=== PATIENT | female | born 1990 | race Caucasian/White ===

== ENCOUNTER 2023-06-03 09:36 | Emergency (ER) | payer SELFPAY ==
[2023-06-03 09:57] VITALS: BP 125/79; PULSE 82; RESP 16; TEMP 37.2; O2SAT 100
--- NOTE | 2023-06-03 10:16 | W.ED.GENAD ---
HPI General Mode of arrival: ambulatory. Date/Time Provider Initiated Documentation: 06/03/23 10:08. Limitations to Documentation: no limitations. Information obtained by: patient, RN notes reviewed and old records reviewed. HPI Narrative: 32-year-old female presents to the ER with a chief complaint of left thigh pain, some midsternal chest pain and left lower quadrant abdominal pain after a slip and fall down some stairs. She fell forward with her leg in between the stairs after slipping on some ice. She did hit the left side of her head, no loss of consciousness no neck pain. She did take 800 mg ibuprofen prior to arrival. She was approximately 6 steps. She is allergic to penicillin. Is not on any blood thinners. Surgical history includes tubal ligation. Denies any chance of .. She is alert and oriented x 4, no focal neurodeficits noted. Related Data Home Medications Medication Instructions Recorded Confirmed ibuprofen 200 mg tablet (Advil) 200 mg PO TID-QID PRN 06/03/23 06/03/23 Allergies Allergy/AdvReac Type Severity Reaction Status Date / Time Penicillins Allergy Severe Anaphylaxis Unverified 06/03/23 09:55 General Stated Complaint: Orthopedic KIESHA: 3 Review of Systems All systems reviewed & are unremarkable except as noted in HPI and below Exam Narrative Exam Narrative: General: Well Developed, Awake and Alert, conversant. Skin: Warm and Dry HEENT: Head: No palpable deformities, Normocephalic Eyes: Pupils PERRLA, EOM's intact. No periorbital eccymosis or step off Ears: Canal patent. Tympanic membranes are clear . No marvin's sign, no hemptympanum. Nose/Face: Atraumatic. Facial bones nontender to palpation and stable with manipulation. Mouth/Throat: No intraoral trauma. Teeth and mandible are intact. Neck: No midline tenderness, no step off, no deformity to palpation of C-spine. Trachea midline. Chest: No surface trauma. without crepitus or deformity. Lungs clear to ausculatation bilaterally. Heart: RRR, no rubs, murmurs or gallop. Abdomen: No abrasions, ecchymosis, or surface trauma. Nondistended. Tenderness noted to palpation to left lower quadrant no guarding, rebound, or rigidity. Pelvis: Nontender to palpation and stable to compression. Femoral pulses strong and equal Extremities: no surface trauma. Sensation intact. Peripheral pulses intact and equal. Neuro: ANO x4, GCS 15, cranial nerves II through XII intact. Motor and sensory exam nonfocal. Reflexes are symmetric. Course Vital Signs Vital signs: Vital Signs Temperature 37.2 C 06/03/23 09:57 Pulse 82 06/03/23 09:57 Respiratory Rate 16 06/03/23 09:57 Blood Pressure 125/79 06/03/23 09:57 Pulse Oximetry 100 06/03/23 09:57 Temperature 37.2 C 06/03/23 09:57 Temperature Source Temporal Artery Scan 06/03/23 09:57 Pulse 82 06/03/23 09:57 Respiratory Rate 16 06/03/23 09:57 Respiratory Effort Normal, Non-Labored 06/03/23 10:00 Blood Pressure 125/79 06/03/23 09:57 Blood Pressure Position Sitting 06/03/23 09:57 Pulse Oximetry 100 06/03/23 09:57 Oxygen Delivery Method Room Air 06/03/23 09:57 Oxygen Flow Rate 0 06/03/23 09:57 Pain Level 10 06/03/23 10:11 Procedures FAST Exam FAST Exam 1: Fluid in Arredondo's pouch: No Fluid in Splenorenal [place]unction: No Fluid around bladder, Transverse view: No Fluid around bladder, Saggital view: No Fluid in Pericardial Sac: No Gross Wall Motion Abnormality: No Study normal for this patient: Yes Images saved for further review: Yes Additional Comments: Supervised by Dr. Bynum Medical Decision Making 32-year-old female presents to the ER with a chief complaint of left thigh pain, some midsternal chest pain and left lower quadrant abdominal pain after a slip and fall down some stairs. She fell forward with her leg in between the stairs after slipping on some ice. She did hit the left side of her head, no loss of consciousness no neck pain. She did take 800 mg ibuprofen prior to arrival. She was approximately 6 steps. She is allergic to penicillin. Is not on any blood thinners. Surgical history includes tubal ligation. Denies any chance of .. She is alert and oriented x 4, no focal neurodeficits noted. X-ray of pelvis femur and knee ordered. POCUS exam for FAST exam ordered. Due to abdominal pain and chest wall wall pain. Zofran and Percocet. X-rays within normal limits. On patient reevaluation she reports her pain is a 6 out of 10. She is moving all 4 extremities without difficulty. FAST exam performed to aid in diagnosis, no free fluid noted. Will give crutches and discharged with strict return instructions. This text was generated using [employer] dictation system, please disregard any oddities of phrase or misspellings. Quality:SDOH Health Related Social Needs: No Data to Display PFSH All Active Problems (Updated 06/03/23 @ 12:13 by Misty Duvall NP) Fall (Acute) Sprain of left knee/leg (Acute) Social History Smoking/Tobacco Use Status: Never Smoking risk assessment performed?: Yes Alcohol Intake: current Alcohol Intake frequency: holidays/special occasions only Drug use: Never Housing: house Do you feel safe at home: Yes Do you feel safe in your relationship?: Yes Discharge Plan Disposition Patient Disposition: Home Condition: Stable Discharge Details Clinical Impression: Sprain of left knee/leg, Fall ED Provider: Misty Duvall Home Meds and New Rx's Prescriptions: No Action ibuprofen [Advil] 200 mg tablet 200 mg PO TID-QID PRN 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 No evidence of fluid in your abdomen or chest. That being said it please return and be seen sooner if any worsening pain not relieved by Tylenol ibuprofen. You will be sore for the next few days. Alternate ice and heat. Be seen sooner for any confusion, vomiting or concerns. Please take Tylenol or Ibuprofen with food every 4-6 hours as needed for pain and swelling. Use the crutches as needed for comfort. Toe-touch weightbearing. Advance weightbearing as tolerated. Follow up with primary care provider in 3-5 days. Return to ED sooner if any worsening or concerns. Increase oral fluids. Discharge Data Discharge Date/Time-TO BE ENTERED AT DEPARTURE: 06/03/23 13:13
[2023-06-03] MEDS: oxyCODONE 5 mg/Acetaminophen 325 mg TAB 1 TAB PO (10:21)
[2023-06-03] MEDS: Ondansetron O.D.T. 4 MG TABEF PO (10:21)
--- NOTE | 2023-06-03 11:01 | DI.RAD_ITS ---
Exam(s) XR PELVIS AP XR KNEE LT 3V AP,LAT,FER XR FEMUR LT EXAM: XR PELVIS AP CLINICAL HISTORY: Fall, Pain. TECHNIQUE: 2D digital imaging was performed. AP pelvis. AP lateral views of the femur. Three view s of the knee. COMPARISON: CR XR KNEE LT 3V AP,LAT,FER from 06/03/2023 CR XR FEMUR LT from 06/03/2023 FINDINGS: BONES: No acute fracture is present. No bony destructive lesion is seen. JOINTS: No dislocation present. No joint space narrowing is present. No knee joint effusion. No de generative changes. SOFT TISSUE: Normal. IMPRESSION: Normal radiographs of the pelvis, left femur and left knee. DATA REPOSITORY: RADIATION DOSE DELIVERED:
--- NOTE | 2023-06-03 11:02 | DI.RAD_ITS ---
Exam(s) XR CHEST 2V PA LATERAL EXAM: XR CHEST 2V PA LATERAL CLINICAL HISTORY: Fall, Chest Pain TECHNIQUE: 2D digital imaging was performed. COMPARISON: No exams were available for comparison FINDINGS: HEART: Normal size. Aorta: Not dilated. PULMONARY VASCULATURE: Normal. LUNGS: Clear. PLEURAL SPACE: No pleural effusion or pneumothorax. BONE:Unremarkable for age. Soft tissues: Unremarkable. IMPRESSION: No acute abnormality. DATA REPOSITORY: RADIATION DOSE DELIVERED:
[2023-06-03 13:09] VITALS: BP 126/93; PULSE 74; RESP 16; O2SAT 96
--- NOTE | 2023-06-08 14:57 | ED.PROG_ITS ---
Date of service: 06/03/23 Time of Service: 15:00 Medical Decision Making i personally examined this pat with RUBÉN Duvall and agree with her trauma assesments and FRANNIE sultana performed Medical Records Medical records reviewed: Yes I reviewed the patient's medical records. Lab Data Lab results reviewed: Yes I reviewed the patient's lab results. 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 No evidence of fluid in your abdomen or chest. That being said it please return and be seen sooner if any worsening pain not relieved by Tylenol ibuprofen. You will be sore for the next few days. Alternate ice and heat. Be seen sooner for any confusion, vomiting or concerns. Please take Tylenol or Ibuprofen with food every 4-6 hours as needed for pain and swelling. Use the crutches as needed for comfort. Toe-touch weightbearing. Advance weightbearing as tolerated. Follow up with primary care provider in 3-5 days. Return to ED sooner if any worsening or concerns. Increase oral fluids. Discharge Data Discharge Date/Time-TO BE ENTERED AT DEPARTURE: 06/03/23 13:13 POCUS Exam (ED) Efast Exam DATE OF EXAM: 06/03/23 PROVIDER THAT PEFORMED THE STUDY: Shaq Bynum IS THIS A REPEAT EXAM DURING THIS ENCOUNTER: no REASON FOR EXAM: Blunt abdominal trauma (done supervising INTERACTIVE MEDIA SPECIALIST Misty Duvall) VISUALIZED STRUCTURES: Hepatorneal space, Pelvis, Pericardium, Perisplenic space, Pleural space/left and Pleural space/right PERTINENT FINDINGS/IMPRESSION: no apparent abnormalities Limited Transthoracic Echo: Exam complete Limited Abdominal Exam: Exam complete Limited Retroperitoneal Exam: Exam complete
== END 2023-06-03 13:13 | disposition home or self-care (01) ==
PROVIDERS: Emergency Provider Registered Nurse Emergency
DX: S83.92XA Sprain of unspecified site of left knee, initial encounter (principal); W10.8XXA Fall (on) (from) other stairs and steps, initial encounter; Y93.01 Activity, walking, marching and hiking; Y92.89 Other specified places as the place of occurrence of the external cause
CPT/HCPCS: 00123; 73552; 73562; 76604; 76705; 76857; 99283; 71046; 72170

== ENCOUNTER 2024-03-08 12:02 | Emergency (ER) | payer MEDICAID, SELFPAY ==
[2024-03-08 12:12] VITALS: BP 123/86; PULSE 83; RESP 16; TEMP 36.6; O2SAT 97
--- NOTE | 2024-03-08 12:30 | DI.US_ITS ---
Exam(s) US RENAL EXAM: US RENAL CLINICAL HISTORY: R CVA tenderness TECHNIQUE: Ultrasound of both kidneys performed using standard protocol. COMPARISON: US POCUS EXAM from 06/03/2023 FINDINGS: RIGHT KIDNEY: Measures 11 cm in length. No cysts evident. Normal cortical thickness and corticomedullary differenti ation .No solid masses No intrarenal calculi nor hydronephrosis. LEFT KIDNEY: Measures 11 cm in length. No cysts evident. Normal cortical thickness and corticomedullary different iaion. No solids masses. No intrarenal calculi nor hydonephrosis. URINARY BLADDER: Prevoid volume is 74 cc Postvoid volume: Patient apparently unable to void. No evidence of bladder mass nor diverticuli. Ureterovesical jets: Both not identified. IMPRESSION: 1. No significant ultrasound findings in the kidneys. 2. No obvious abnormality in the urinary bladder. DATA REPOSITORY:
--- NOTE | 2024-03-08 12:34 | ED.GENADUL_ITS ---
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 HPI Narrative: 33 year-old female presents to ED today by POV/ambulating with a chief complaint of generalized abdominal pain for the past 3 months, happens when she is about to have a bowel movement- gives her anxiety. Quality described as generalized abdominal pain, denies straining very hard to push out a bowel movement, denies black or bloody stools, no radiation to nausea or vomiting, fever, shortness of breath, chest pain, endorses that it makes her sweat. Severity is described as moderate to severe, intermittent. Palliating factors include nothing specific attempted. Provoking factors include happens worse right before a bowel movement. Patient not anticoagulated. Related Data Home Medications ?Medication ?Instructions ?Recorded ?Confirmed ibuprofen 200 mg tablet (Advil) 200 mg PO TID-QID PRN 06/03/23 03/08/24 alprazolam 0.5 mg tablet (Xanax) 0.5 mg PO ONCE PRN 03/08/24 03/08/24 docosahexaenoic acid 1 cap PO .PO 03/08/24 03/08/24 Allergies Allergy/AdvReac Type Severity Reaction Status Date / Time Penicillins Allergy Severe Anaphylaxis Unverified 03/08/24 12:16 General Stated Complaint: Abd Prob KIESHA: 3 Review of Systems All systems reviewed & are unremarkable except as noted in HPI and below Exam Narrative Exam Narrative: GENERAL APPEARANCE: Well-nourished, non-toxic, awake and alert, atraumatic, no acute distress. SKIN: Warm, pink, dry, intact, without rashes/lesions/ulcerations. HEAD: Normocephalic, atraumatic, normal hair distribution for gender/age. EYES: Normal conjunctiva, no exudates on lids/lashes. ENT: Nares patent, no circumoral cyanosis, no facial swelling NECK: Supple, trachea midline, painless cervical ROM. LUNGS/CHEST: Lungs CTA bilaterally, non-labored respirations, normal A/P diameter, symmetrical expansion, no chest wall deformity HEART (CV/PV): Regular rate and rhythm without murmur, no peripheral edema, no JVD. ABDOMEN: Soft, non-distended, no guarding, mild epigastric tenderness, right CVA tenderness to percussion. MSK: Normal ROM, no swelling/deformity to bilateral UEs or LEs, moving all extremities without weakness, no cyanosis, spine midline without tenderness, normal curvature, left lower thoracic palpable muscle tension and tenderness, no midline vertebral tenderness/crepitus/step-offs NEURO: Mental Status AAOx4 - alert to person, place, time, events No facial droop, no forehead involvement. Motor: No focal weakness - strength 5/5 in bilateral UEs and LEs, proximal and distal, symmetric. Sensory: sensation intact to light touch globally. Gait normal: patient ambulated without ataxia into ED room. PSYCH: euthymic, cooperative, pleasant, appropriate speech Course Vital Signs Vital signs: Vital Signs Temperature 36.6 C 03/08/24 12:12 Pulse 83 03/08/24 12:12 Respiratory Rate 16 03/08/24 12:12 Blood Pressure 123/86 03/08/24 12:12 Pulse Oximetry 97 03/08/24 12:12 Temperature 36.6 C 03/08/24 12:12 Temperature Source Temporal Artery Scan 03/08/24 12:12 Pulse 83 03/08/24 12:12 Respiratory Rate 16 03/08/24 12:12 Blood Pressure 123/86 03/08/24 12:12 Blood Pressure Position Sitting 03/08/24 12:12 Pulse Oximetry 97 03/08/24 12:12 Oxygen Delivery Method Room Air 03/08/24 12:12 Oxygen Flow Rate 0 03/08/24 12:12 Pain Level 7 03/08/24 12:12 Medical Decision Making This dictation utilizes [id number] dictation software and may contain unedited grammatical errors. 33 year-old female presents to ED today by POV/ambulating with a chief complaint of generalized abdominal pain for the past 3 months, happens when she is about to have a bowel movement- gives her anxiety. Quality described as generalized abdominal pain, denies straining very hard to push out a bowel movement, denies black or bloody stools, no radiation to nausea or vomiting, fever, shortness of breath, chest pain, endorses that it makes her sweat. Severity is described as moderate to severe, intermittent. Palliating factors include nothing specific attempted. Provoking factors include happens worse right before a bowel movement. Patients' medical history: Anxiety. Family and social history: Denies any EtOH use, denies illicit substance use. Pertinent exam findings / vital signs include mild epigastric tenderness, right CVA tenderness to percussion, benign cardiopulmonary status, afebrile and nontoxic stable vitals, left lower thoracic paraspinal muscle palpable tension and tenderness. Differential / pathologies of concern include gastroenteritis, enteritis, GERD, IBS, renal obstructive pathology, pancreatitis, cholecystitis, cholelithiasis. Diagnostic studies of: -CBC, CMP, lipase, UA, U. Preg, US Renal, US ABD RUQ. -CBC shows no abnormality -CMP no actionable abnormality, does show elevated AST and bilirubin -Lipase elevated, suspect pancreatitis - patient denies ETOH use -UA shows no acute findings -US renal without findings -US ABD Ltd RUQ ordered after this first U/S was performed as lipase/AST/bilirubin resulted after the first study was already completed. Interventions of: -Tylenol, Toradol, Lidoderm patch, methocarbamol for attempted muscle spasm relief. ED Course/Assessment/Plan: 33-year-old female presents with anxiety over ongoing generalized abdominal pain that is worse before a bowel movement and has been going on for 2 to 3 months, her vitals are completely stable, laboratory workup shows no signs of infection. She does have elevated lipase to level I would suspect his acute pancreatitis as well as an elevated AST and mildly elevated bilirubin, she does not have any concerns on exam for cholangitis, US renal shows no acute findings, US abdomen limited right upper quadrant study is pending at time of signout to oncoming provider Misty Duvall NP., I do not suspect any acute emergent pathology but the patient does deny alcohol use and may need further workup outpatient by PCP for her elevated lipase and AST Findings not consistent with cholangitis, exam consistent with peritoneal findings like choledocholithiasis, sepsis or infection, urinary tract infection, renal stone or obstruction. Disposition of Acute Pancreatitis. Patient verbalized understanding of the plan and return to ED criteria and engaged in shared decision making. Medical Records Medical records reviewed: Yes I reviewed the patient's medical records. Imaging Data Radiologic Study: Attestation: I personally reviewed and interpreted this imaging study as follows: Imaging: Ultrasound Radiologist's impression: EXAM: US RENAL CLINICAL HISTORY: R CVA tenderness TECHNIQUE: Ultrasound of both kidneys performed using standard protocol. COMPARISON: US POCUS EXAM from 06/03/2023 FINDINGS: RIGHT KIDNEY: Measures 11 cm in length. No cysts evident. Normal cortical thickness and corticomedullary differentiation .No solid masses No intrarenal calculi nor hydronephrosis. LEFT KIDNEY: Measures 11 cm in length. No cysts evident. Normal cortical thickness and corticomedullary differentiaion. No solids masses. No intrarenal calculi nor hydonephrosis. URINARY BLADDER: Prevoid volume is 74 cc Postvoid volume: Patient apparently unable to void. No evidence of bladder mass nor diverticuli. Ureterovesical jets: Both not identified. IMPRESSION: 1. No significant ultrasound findings in the kidneys. 2. No obvious abnormality in the urinary bladder. Radiologic Study #2: Attestation: I personally reviewed and interpreted this imaging study as follows: Imaging: Ultrasound Lab Data Lab results reviewed: Yes I reviewed the patient's lab results. Labs: Laboratory Tests Range/Units 03/08/24 03/08/24 12:45 13:06 WBC (4.4-10.8) 10^3/uL 6.09 RBC (3.93-5.22) 10^6/uL 4.37 Hgb (11.2-15.7) g/dL 14.0 Hct (36.0-46.0) % 40.7 MCV (80-95) fL 93 MCH (27.0-33.0) pg 32.0 MCHC (32.0-36.0) % 34.4 RDW (11.7-14.6) % 11.3 L Plt Count (130-400) 10^3/uL MPV (8.0-11.0) fL Immature Gran % % 0.3 Neutrophils % % 61.8 Lymphocytes % % 29.2 Monocytes % % 6.1 Eosinophils % % 2.3 Basophils % % 0.3 Nucleated RBC % (0.0-0.3) % 0.0 Absolute Neutrophils (1.2-6.7) 10^3/uL 3.76 Absolute Lymphocytes (1.2-3.4) 10^3/uL 1.78 Absolute Monocytes (0.1-0.8) 10^3/uL 0.37 Absolute Eosinophils (0.0-0.7) 10^3/uL 0.14 Absolute Basophils (0.0-0.2) 10^3/uL 0.02 Sodium (136-145) mmol/L 141 Potassium (3.5-5.1) mmol/L 4.4 Chloride (98-107) mmol/L 107 Carbon Dioxide (21.0-32.0) mmol/L 24.6 Anion Gap (3-11) mmol/L 9.4 BUN (7-18) mg/dL 7 Creatinine (0.55-1.02) mg/dL 0.6 Est GFR (CKD-EPI 2020) (mL/min/1.73m2) 121.47 Glucose (74-106) mg/dL 74 Calcium (8.5-10.1) mg/dL 9.4 Total Bilirubin (0.2-1.0) mg/dL 1.14 H AST (15-37) U/L 76 H ALT (14-59) U/L 41 Alkaline Phosphatase (46-116) U/L 49 Total Protein (6.4-8.2) g/dL 7.5 Albumin (3.4-5.0) g/dL 3.9 Lipase (16-77) U/L 133 H Urine Color (Yellow) Yellow Urine Clarity (Clear) Clear Urine pH (5-8) 6.5 Ur Specific [place] (1.005-1.025) 1.010 Urine Protein (Neg-Trace) mg/dL Negative Urine Ketones (Negative) mg/dL Negative Urine Blood (Negative) Negative Urine Nitrite (Negative) Negative Urine Bilirubin (Negative) Negative Urine Urobilinogen (Up to 0.2) mg/dL 0.2 Ur Leukocyte Esterase (Negative) Negative Urine Glucose (Negative) mg/dL Negative Quality:SDOH Health Related Social Needs: No Data to Display PFSH Family History (Updated 03/03/24 @ 15:56 by Rosalia King) Mother Anxiety Asthma Heart disease Hypertension Breast cancer Depression Father Depression Diabetes Heart disease Hypertension Sister Anxiety Depression Brother Depression Anxiety Social History (Updated 03/03/24 @ 15:53 by Rosalia King) Smoking/Tobacco Use Status: Never Smoking risk assessment performed?: Yes Alcohol Intake: current Alcohol Intake frequency: holidays/special occasions only Drug use: Rarely Substance use type: marijuana Adopted: No Caregiver/Support person: No Foster care: No Household members: spouse and children Housing: house Number of Children: 2 Communication Needs: None Education Level: college Do you need help understanding health information?: Never Pets and animals: Yes (2) Pets and animals: cat(s) and dog(s) Sexually active: Yes Do you think of yourself as: straight/heterosexual Current gender identity: female What is your relationship status?: How often do you talk on the phone with friends or family?: never How often do you get together with friends or relatives?: never Do you belong to any clubs or organized social groups?: no Panel score (0-1 are the most socially isolated patients): 0 What type of physical activity do you participate in: none April/Scientologist: Roman Catholic Seatbelt use: always Helmet use: No Drive intox or ride w/intox dumpcart driver: No Do you feel safe at home: Yes Do you feel safe in your relationship?: Yes
[2024-03-08 12:46] VITALS: BP 123/86; PULSE 83; RESP 16; TEMP 36.6; O2SAT 97
[2024-03-08] MEDS: Ketorolac 10 MG TAB PO (12:57)
[2024-03-08] MEDS: Methocarbamol 750 MG TAB PO (12:57)
[2024-03-08] MEDS: Lidocaine 5% Patch 1 PATCH TP (12:57)
[2024-03-08] MEDS: Acetaminophen 500 MG TAB 1000 MG PO (12:57)
[2024-03-08 13:02] LABS: Bilirubin Negative (Negative); Blood Negative (Negative); Clarity Clear (Clear); Glucose Negative (Negative); Ketones Negative (Negative); Leukocyte Esterase Negative (Negative); Nitrite Negative (Negative); Urobilinogen 0.2 mg/dL (Up to 0.2); pH 6.5 (5-8)
[2024-03-08 13:23] LABS: Abs Immature Grans 0.02 10^3/uL (0.0-0.06); Absolute Basophil Count 0.02 10^3/uL (0.0-0.2); Absolute Eosinophil Count 0.14 10^3/uL (0.0-0.7); Absolute Lymphocyte Count 1.78 10^3/uL (1.2-3.4); Absolute Monocyte Count 0.37 10^3/uL (0.1-0.8); Absolute Neutrophil Count 3.76 10^3/uL (1.2-6.7); Basophils % 0.3 %; Eosinophils % 2.3 %; HCT 40.7 % (36.0-46.0); Immature Grans % 0.3 %; Lymphocytes % 29.2 %; MCHC 34.4 % (32.0-36.0); MCV 93 fL (80-95); Monocytes % 6.1 %; Neutrophils % 61.8 %; RBC 4.37 10^6/uL (3.93-5.22); RDW 11.3 % (11.7-14.6); RDW-SD 38.5 fL; WBC 6.09 10^3/uL (4.4-10.8)
[2024-03-08 13:33] LABS: ALT 41 U/L (14-59); AST 76 U/L (15-37); Albumin 3.9 g/dL (3.4-5.0); Alkaline Phosphatase 49 U/L (46-116); Anion Gap 9.4 mmol/L (3-11); BUN 7 mg/dL (7-18); Bilirubin, Total 1.14 mg/dL (0.2-1.0); CO2 24.6 mmol/L (21.0-32.0); CREATININE 0.6 mg/dL (0.55-1.02); Calcium 9.4 mg/dL (8.5-10.1); Chloride 107 mmol/L (98-107); Estimated GFR 121.47 (mL/min/1.73m2); Glucose 74 mg/dL (74-106); Lipase 133 U/L (16-77); Potassium 4.4 mmol/L (3.5-5.1); Sodium 141 mmol/L (136-145); Total Protein 7.5 g/dL (6.4-8.2)
--- NOTE | 2024-03-08 13:45 | DI.US_ITS ---
Exam(s) US ABDOMEN LIMITED EXAM: US ABDOMEN LIMITED CLINICAL HISTORY: RUQ exam, elev lipase TECHNIQUE: Ultrasound abdomen performed using standard protocol. COMPARISON: US POCUS EXAM from 06/03/2023 US US RENAL from 03/08/2024 FINDINGS: PANCREAS: Normal where visualized. LIVER: There is increased echogenicity of the liver consistent with fatty infiltration. Hepatopetal flow in the Portal Vein. The liver measures in 19.4 cm length. No evidence of a hepatic mass. GALLBLADDER: No evidence of cholelithiasis. The gallbladder is contracted limiting evaluation. No pe richolecystic fluid identified. BILIARY SYSTEM: Common bile duct measures < 7 mm. No intrahepatic biliary ductal dilation. PATTEN'S SIGN: Negative. RIGHT KIDNEY: Kidney is normal in size. No evidence of renal calculi. No evidence of hydronephrosis. No renal mass or cyst identified. ASCITES: None seen. IMPRESSION: Fatty infiltration of the liver and hepatomegaly. DATA REPOSITORY:
[2024-03-08 14:47] VITALS: BP 105/67; PULSE 82; TEMP 37.2; O2SAT 96
--- NOTE | 2024-03-08 15:53 | ED.PROG_ITS ---
Date of service: 03/08/24 Time of Service: 15:54 Medical Decision Making Care assumed from Aj RIVERA please see his initial PE and HPI. Pending US of abdomen. Ultrasound shows fatty infiltration of the liver no cholecystitis. Does show hepatomegaly. Patient discharged to home with follow-up care with PCP. Given instructions on strict return instructions and home care. This text was generated using [employer] dictation system, please disregard any oddities of phrase or misspellings. Medical Records Medical records reviewed: Yes I reviewed the patient's medical records. Imaging Data Radiologic Study: Imaging: Ultrasound Radiologist's impression: EXAM: US ABDOMEN LIMITED CLINICAL HISTORY: RUQ exam, elev lipase TECHNIQUE: Ultrasound abdomen performed using standard protocol. COMPARISON: US POCUS EXAM from 06/03/2023 US US RENAL from 03/08/2024 FINDINGS: PANCREAS: Normal where visualized. LIVER: There is increased echogenicity of the liver consistent with fatty infiltration. Hepatopetal flow in the Portal Vein. The liver measures in 19.4 cm length. No evidence of a hepatic mass. GALLBLADDER: No evidence of cholelithiasis. The gallbladder is contracted limiting evaluation. No pericholecystic fluid identified. BILIARY SYSTEM: Common bile duct measures < 7 mm. No intrahepatic biliary ductal dilation. PATTEN'S SIGN: Negative. RIGHT KIDNEY: Kidney is normal in size. No evidence of renal calculi. No evidence of hydronephrosis. No renal mass or cyst identified. ASCITES: None seen. IMPRESSION: Fatty infiltration of the liver and hepatomegaly. Lab Data Lab results reviewed: Yes I reviewed the patient's lab results. Labs: Laboratory Tests Range/Units 03/08/24 03/08/24 12:45 13:06 WBC (4.4-10.8) 10^3/uL 6.09 RBC (3.93-5.22) 10^6/uL 4.37 Hgb (11.2-15.7) g/dL 14.0 Hct (36.0-46.0) % 40.7 MCV (80-95) fL 93 MCH (27.0-33.0) pg 32.0 MCHC (32.0-36.0) % 34.4 RDW (11.7-14.6) % 11.3 L Plt Count (130-400) 10^3/uL MPV (8.0-11.0) fL Immature Gran % % 0.3 Neutrophils % % 61.8 Lymphocytes % % 29.2 Monocytes % % 6.1 Eosinophils % % 2.3 Basophils % % 0.3 Nucleated RBC % (0.0-0.3) % 0.0 Absolute Neutrophils (1.2-6.7) 10^3/uL 3.76 Absolute Lymphocytes (1.2-3.4) 10^3/uL 1.78 Absolute Monocytes (0.1-0.8) 10^3/uL 0.37 Absolute Eosinophils (0.0-0.7) 10^3/uL 0.14 Absolute Basophils (0.0-0.2) 10^3/uL 0.02 Sodium (136-145) mmol/L 141 Potassium (3.5-5.1) mmol/L 4.4 Chloride (98-107) mmol/L 107 Carbon Dioxide (21.0-32.0) mmol/L 24.6 Anion Gap (3-11) mmol/L 9.4 BUN (7-18) mg/dL 7 Creatinine (0.55-1.02) mg/dL 0.6 Est GFR (CKD-EPI 2020) (mL/min/1.73m2) 121.47 Glucose (74-106) mg/dL 74 Calcium (8.5-10.1) mg/dL 9.4 Total Bilirubin (0.2-1.0) mg/dL 1.14 H AST (15-37) U/L 76 H ALT (14-59) U/L 41 Alkaline Phosphatase (46-116) U/L 49 Total Protein (6.4-8.2) g/dL 7.5 Albumin (3.4-5.0) g/dL 3.9 Lipase (16-77) U/L 133 H Urine Color (Yellow) Yellow Urine Clarity (Clear) Clear Urine pH (5-8) 6.5 Ur Specific [place] (1.005-1.025) 1.010 Urine Protein (Neg-Trace) mg/dL Negative Urine Ketones (Negative) mg/dL Negative Urine Blood (Negative) Negative Urine Nitrite (Negative) Negative Urine Bilirubin (Negative) Negative Urine Urobilinogen (Up to 0.2) mg/dL 0.2 Ur Leukocyte Esterase (Negative) Negative Urine Glucose (Negative) mg/dL Negative Quality:[facility] Related Social Needs: No Data to Display Sign Out Sign Out Data: Sign Out Comment: Pending U/S ABD RUQ study- has pancreatitis and AST elevation, denies ETOH- is tolerating PO, may need outpatient referral without U/S findings of cholecystitis or choledocho Last updated by Darryn Singh PA at 03/08/24 15:22 Discharge Plan Disposition Patient Disposition: Home Condition: Stable Discharge Details Clinical Impression: Fatty infiltration of liver Primary Care Provider: Negar Morel ED Provider: Misty Duvall Home Meds and New Rx's Prescriptions: No Action ibuprofen [Advil] 200 mg tablet 200 mg PO TID-QID PRN Patient Comments: 800mg [employer] alprazolam [Xanax] 0.5 mg tablet 0.5 mg PO ONCE PRN docosahexaenoic acid [ DHA] 1 cap PO .PO Discharge Instructions Instructions: Metabolic dysfunction-associated steatotic liver disease Additional Instructions: Workup is largely unremarkable except for fatty infiltration of the liver. Please stay away from anything fried fatty spicy or dairy. Follow up with primary care provider in 3-5 days. Return to ED sooner if any worsening or concerns. Referrals: Negar Morel APRN [Primary Care Provider] - 3 days
== END 2024-03-08 16:20 | disposition home or self-care (01) ==
PROVIDERS: Physician Assistant; Emergency Provider Registered Nurse Emergency; PCP Nurse Practitioner Family
DX: R10.9 Unspecified abdominal pain (principal); K76.0 Fatty (change of) liver, not elsewhere classified
CPT/HCPCS: 00123; 76770; 80053; 81025; 83690; 99284; 76705; 81003; 85025; 99283

== ENCOUNTER 2024-03-21 13:52 | Outpatient (CLI) | payer MEDICAID, SELFPAY ==
--- NOTE | 2024-03-21 11:13 | DI.CT_ITS ---
Exam(s) CT ABDOMEN PELVIS W EXAM: CT ABDOMEN PELVIS W CLINICAL HISTORY: R10.9 Abd pain TECHNIQUE: Imaging Protocol: Axial computed tomography images with coronal and sagittal reformatted images were created and reviewed. CONTRAST MATERIAL: Intravenous: Omnipaque 350 Contrast volume:85 mL Oral: Yes COMPARISON: US US RENAL from 03/08/2024 US US ABDOMEN LIMITED from 03/08/2024 FINDINGS: ABDOMEN: Lung Bases: Normal where visualized. Liver: Normal density. No measurable mass. Portal, Superior Mesenteric, and Splenic Veins: Unremarkable. Gallbladder and Biliary Tract: No radiodense calculus or dilation. Pancreas: Normal density, no abnormal calcifications or inflammatory process. Spleen: Normal. Adrenals: No masses seen. Kidneys: Normal size, contour and axis. No radiodense stones or obstructive uropathy. No masses seen. Abdominal Aorta: Abdominal portion non-dilated. Bowel: No obstruction or bowel wall thickening. There is a large amount of stool throughout the colon suggesting constipation. There is no evidence of appendicitis. Peritoneal Cavity: No ascites, collection or mesenteric inflammatory response. No free air. Lymph Nodes: Within normal limits. Bones: Within normal limits for the patient's age. Soft Tissues: There is a small fat containing umbilical hernia. PELVIS: Bladder: Symmetric distention, no gross wall thickening. Reproductive Organs: Unremarkable as visualized. Lymph Nodes: Within normal limits. Bones: Within normal limits for the patient's age. IMPRESSION: 1. There is a large amount of stool seen throughout the colon consistent with constipation. 2. No acute abdominal or pelvic process. RADIATION DOSE DELIVERED: 292.01mGy.cm Total DLP DATA REPOSITORY: All CT scans at this facility are submitted to the National Radiology Data Registry (NRDR) Dose Index Registry (DIR) with the [employer] (ACR). RADIATION OPTIMIZATION: All CT scans at this facility use at least one of these dose optimization te chniques: automated exposure control; mA and/or kV adjustment per patient size (includes targeted exa ms where dose is matched to clinical indication); or iterative reconstruction.
[2024-03-21 13:07] LABS: Abs Immature Grans 0.02 10^3/uL (0.0-0.06); Absolute Basophil Count 0.03 10^3/uL (0.0-0.2); Absolute Eosinophil Count 0.21 10^3/uL (0.0-0.7); Absolute Lymphocyte Count 1.69 10^3/uL (1.2-3.4); Absolute Monocyte Count 0.42 10^3/uL (0.1-0.8); Absolute Neutrophil Count 2.55 10^3/uL (1.2-6.7); Basophils % 0.6 %; Eosinophils % 4.3 %; Immature Grans % 0.4 %; Lymphocytes % 34.3 %; MCH 32.3 pg (27.0-33.0); MCHC 34.1 % (32.0-36.0); MCV 95 fL (80-95); MPV 9.9 fL (8.0-11.0); Monocytes % 8.5 %; Neutrophils % 51.9 %; Platelet Count 162 10^3/uL (130-400); RBC 4.33 10^6/uL (3.93-5.22); RDW 11.6 % (11.7-14.6); RDW-SD 40.4 fL; WBC 4.92 10^3/uL (4.4-10.8)
[2024-03-21 13:28] LABS: ALT 115 U/L (14-59); AST 142 U/L (15-37); Albumin 3.9 g/dL (3.4-5.0); Alkaline Phosphatase 57 U/L (46-116); Anion Gap 6.6 mmol/L (3-11); BUN 7 mg/dL (7-18); Bilirubin, Total 1.17 mg/dL (0.2-1.0); CO2 26.4 mmol/L (21.0-32.0); CREATININE 0.6 mg/dL (0.55-1.02); Calcium 9.7 mg/dL (8.5-10.1); Chloride 107 mmol/L (98-107); Estimated GFR 121.47 (mL/min/1.73m2); Glucose 89 mg/dL (74-106); Potassium 4.2 mmol/L (3.5-5.1); Sodium 140 mmol/L (136-145); Total Protein 7.7 g/dL (6.4-8.2)
[2024-03-21 13:36] LABS: Lipase 36 U/L (16-77)
[2024-03-21] MEDS: Omnipaque 350 MG/ML 100 ML BTL IJ (14:03)
[2024-03-21] MEDS: Normal Saline - Diluent 50 ML VIAL IJ (14:05)
== END 2024-03-21 14:12 ==
LOC: DI 13:53
PROVIDERS: PCP Nurse Practitioner Family; Visit Provider Nurse Practitioner Family
DX: R10.9 Unspecified abdominal pain (principal); K59.00 Constipation, unspecified
CPT/HCPCS: 80053; 83690; 74177; 85025; J3490

== ENCOUNTER 2024-03-22 14:21 | Outpatient (REF) | payer MEDICAID, SELFPAY | END 2024-03-22 14:22 | disposition home or self-care (01) | LOC: LBN 14:21 | PROVIDERS: PCP Nurse Practitioner Family; Visit Provider Nurse Practitioner Family | DX: R10.84 Generalized abdominal pain (principal); K76.0 Fatty (change of) liver, not elsewhere classified; Z86.19 Personal history of other infectious and parasitic diseases | CPT/HCPCS: 87480; 87510; 87660 ==

== ENCOUNTER 2024-03-23 10:28 | Outpatient (CLI) | payer MEDICAID, SELFPAY ==
[2024-03-23 11:09] LABS: ALT 110 U/L (14-59); AST 137 U/L (15-37); Albumin 4.1 g/dL (3.4-5.0); Alkaline Phosphatase 62 U/L (46-116); Bilirubin, Direct 0.4 mg/dL (0.0-0.2); Bilirubin, Total 1.66 mg/dL (0.2-1.0); Ferritin 166 ng/mL (8-252); TSH (W/Ref FT4) 0.46 uIU/mL (0.36-3.74); Total Protein 7.9 g/dL (6.4-8.2)
[2024-03-23 11:20] LABS: Iron 155 ug/dL (50-170); Total Iron Binding Capacity 399 ug/dL (250-450); Transferrin Sat 39 % (15-50)
[2024-03-23 22:05] LABS: Hepatitis A Antibody IgM Negative (Negative); Hepatitis B Core Antibody Negative (Negative); Hepatitis B surface Ag Negative (Negative); Hepatitis C Ab w Rflx HCV PCR Reactive (Negative)
[2024-03-24 10:51] LABS: Lyme Ab w Rflx to Lyme Confirm Negative (Negative)
[2024-03-24 13:07] LABS: HCV RNA Detection Quantitative 18500000 IU/mL (Undetected); HCV RNA Qualitative Detected (Undetected)
[2024-03-24 18:12] LABS: Lab Add On Test DONE
[2024-03-24 19:27] LABS: Lab Add On Test DONE
[2024-03-26 16:41] LABS: Anaplasma phagocytophilum Negative (Negative); B. miyamotoi PCR Negative (Negative); Babesia divergens/MO-1 Negative (Negative); Babesia duncani Negative (Negative); Babesia microti Negative (Negative); Ehrlichia chaffeensis Negative (Negative); Ehrlichia ewingii/canis Negative (Negative); Ehrlichia muris eauclairensis Negative (Negative)
[2024-03-27 09:16] LABS: HBs Antibody, Quant 178.6 mIU/mL (See Note); Hepatitis B Surface Ab Positive (See Note)
[2024-03-28 16:19] LABS: Celiac gene pairs present? No
[2024-03-28 17:47] LABS: HCV Genotype 3 (Undetected)
== END 2024-03-23 10:29 | disposition home or self-care (01) ==
LOC: LBO 10:29
PROVIDERS: PCP Nurse Practitioner Family; Visit Provider Nurse Practitioner Family
DX: K76.0 Fatty (change of) liver, not elsewhere classified (principal); R10.84 Generalized abdominal pain; B19.20 Unspecified viral hepatitis C without hepatic coma
CPT/HCPCS: 36415; 80076; 86704; 86706; 86709; 86803; 86816; 87340; 87522; 87798; 82728; 83540; 83550; 84443; 86618; 87521

== ENCOUNTER 2024-03-28 10:42 | Outpatient (REF) | payer MEDICAID, SELFPAY ==
[2024-03-30 12:22] LABS: Chlamydia Result Negative (Negative); GC Result Negative (Negative)
== END 2024-03-28 10:43 | disposition home or self-care (01) ==
LOC: LBN 10:42
PROVIDERS: PCP Nurse Practitioner Family; Visit Provider Nurse Practitioner Family
DX: N89.8 Other specified noninflammatory disorders of vagina (principal); N76.0 Acute vaginitis
CPT/HCPCS: 87491; 87591; 87480; 87510; 87660

== ENCOUNTER 2024-03-30 13:24 | Outpatient (CLI) | payer MEDICAID, SELFPAY ==
[2024-03-30 13:41] LABS: Abs Immature Grans 0.02 10^3/uL (0.0-0.06); Absolute Basophil Count 0.03 10^3/uL (0.0-0.2); Absolute Eosinophil Count 0.06 10^3/uL (0.0-0.7); Absolute Lymphocyte Count 2.99 10^3/uL (1.2-3.4); Absolute Monocyte Count 0.47 10^3/uL (0.1-0.8); Absolute Neutrophil Count 3.91 10^3/uL (1.2-6.7); Basophils % 0.4 %; Eosinophils % 0.8 %; Immature Grans % 0.3 %; MCH 32.2 pg (27.0-33.0); MCHC 34.1 % (32.0-36.0); MCV 94 fL (80-95); MPV 9.8 fL (8.0-11.0); Monocytes % 6.3 %; Neutrophils % 52.2 %; Platelet Count 261 10^3/uL (130-400); RBC 4.66 10^6/uL (3.93-5.22); RDW 11.5 % (11.7-14.6); RDW-SD 39.8 fL; WBC 7.48 10^3/uL (4.4-10.8)
[2024-03-30 13:44] LABS: ALT 80 U/L (14-59); AST 122 U/L (15-37); Albumin 4.3 g/dL (3.4-5.0); Alkaline Phosphatase 64 U/L (46-116); Bilirubin, Direct 0.4 mg/dL (0.0-0.2); Bilirubin, Total 1.53 mg/dL (0.2-1.0); Total Protein 8.2 g/dL (6.4-8.2)
[2024-03-30 13:49] LABS: C-Reactive Protein < 0.50 mg/dL (<or=0.5)
[2024-03-30 23:07] LABS: HIV-1/2 Ag & Ab Screen Negative (Negative)
[2024-03-31 12:13] LABS: Syphilis Serology (RPR) Negative (Negative)
== END 2024-03-30 13:25 | disposition home or self-care (01) ==
LOC: LBO 13:25
PROVIDERS: PCP Nurse Practitioner Family; Visit Provider Nurse Practitioner Family
DX: B18.2 Chronic viral hepatitis C (principal); Z11.3 Encounter for screening for infections with a predominantly sexual mode of transmission; R61 Generalized hyperhidrosis
CPT/HCPCS: 36415; 80076; 87389; 85025; 86140; 86592

== ENCOUNTER 2024-05-16 01:18 | Outpatient (CLI) | payer MEDICAID, SELFPAY ==
--- NOTE | 2024-05-16 07:15 | DI.NM_ITS ---
Exam(s) NM HEPATOBILIARY CCK GRP EXAM: NM HEPATOBILIARY CCK GRP CLINICAL HISTORY: ABD PAIN,NAUSEA,VOMITING,R11.2,R10.84. TECHNIQUE: Injected dose: 5 mCi Tc-99 mebrofenin Initial dynamic images: 60 minutes Post-Gallbladder fillin.02 mcg/kg CCK intravenously over a 15min infusion. Addition images: 20 minute dynamic during CCK administration. COMPARISON: US US ABDOMEN LIMITED from 03/08/[address] ABDOMEN PELVIS W from 03/21/2024 FINDINGS: There is normal uptake and excretion of radiopharmaceutical by the liver and activity seen within the gallbladder lumen starting at 8 minutes post injection. After IV injection of CCK there is a 60 percent ejection fraction demonstrated by the gallbladder whi ch is within normal limits (greater than 35 percent). After 18 minutes there is too much radiopharma ceutical activity in adjacent bowel loops for accurate measurement of the ejection fraction. IMPRESSION: 1. No evidence of obstruction of the cystic duct (and therefore no evidence of acute cholecystitis). 2. No evidence of obvious gallbladder dysfunction. The gallbladder exhibits a 60 percent ejection f raction in response to CCK infusion. SNM guidelines: Gallbladder visualization should be present by 3 hours. Delayed [id number] otero sit beyond 60 min raises the suspicion for partial common bile duct (CBD) obstruction. Gallbladder ejection fraction <35% has a good correlation with acalculous disease (i.e., chronic acal culous cholecystitis, cystic duct syndrome, sphincter of Oddi disease).
[2024-05-16] MEDS: Sincalide 5 MCG VIAL 0.9 MCG IJ (12:17)
[2024-05-16] MEDS: Water,Injection,Sterile 10 ML VIAL IJ (12:18)
== END 2024-05-16 01:38 ==
LOC: DI 01:18
PROVIDERS: PCP Nurse Practitioner Family; Visit Provider Nurse Practitioner Family
DX: R10.84 Generalized abdominal pain
CPT/HCPCS: 78227; J2805